=== PATIENT | female | born 1990 | race African-American/Black ===

== ENCOUNTER 2025-06-05 16:57 | Observation (INO) | payer BC, SELFPAY ==
[2025-06-05] VITALS (19 sets, daily range): BP systolic 117–127; BP diastolic 70–76; PULSE 78–102; O2SAT 93–99; BMI 25.6
--- NOTE | 2025-06-05 17:32 | OBADM ---
This patient, Joy Vu, admitted to the OB room 117 for observation. Patient/family oriented to hospital policies and general routines including ID bracelet, bed and alarms, visiting hours, pain management, procedures, bathroom and other care routines, personal items, smoking policy, room service/diet, and visiting hours. Patient/Family are encouraged to report perceived risks to care and to ask questions if they do not understand what they are told or what they should do.
[2025-06-05 19:11] LABS: Add Urine Microscopic? YES; Appearance Urine Clear (Clear); Glucose Urine UA Negative (Negative); Leukocyte Esterase Ur 2+ LEU/UL (Negative); Need Manual Microscopic Reviewed; Nitrate Urine Negative (Negative); Non Pathogenic Casts 0-2; Specific Grav Ur 1.016 (1.001-1.035)
--- NOTE | 2025-06-05 19:40 | PC.NURSE ---
Pt discharged home undelivered in stable condition per order from Dr. Croft. Discharge instructions given and discussed with pt. Pt stated understanding, all questions and concerns answered. Pt ambulated out of department with all belongings. Family @ pt side.
--- NOTE | 2025-06-21 11:22 | P.PNOB_ITS ---
OB - Triage/Final Diagnosis Visit Information Comments/Additional reasons for admission: I have assessed the risk for this patient, Joy Vu, and determined that she would benefit from observation care. Evaluation Laboratory results: Laboratory Tests 06/05/25 18:01 Urine Color Yellow Urine Appearance Clear Urine pH 6.0 Ur Specific Sebastian 1.016 Urine Protein Trace Urine Glucose (UA) Negative Urine Ketones 1+ H Ur Blood (Man) Negative Urine Nitrate Negative Urine Bilirubin Negative Urine Urobilinogen 1.0 Add Ur Microanalysis Reviewed Leukocyte Esterase Rfl 2+ H Urine RBC 0-2 Urine WBC 6-10 H Ur Squamous Epith Cells Moderate Urine Bacteria Rare Urine Casts 0-2 Final Diagnosis (1) Abdominal cramping affecting : Code(s): O26.899 - Other specified related conditions, unspecified trimester; R10.9 - Unspecified abdominal pain Status: Acute
== END 2025-06-05 19:40 | disposition home or self-care (01) ==
PROVIDERS: Admitting Provider Obstetrics & Gynecology; Visit Provider Obstetrics & Gynecology
DX: O26.892 Other specified pregnancy related conditions, second trimester (principal); R10.9 Unspecified abdominal pain; Z3A.28 28 weeks gestation of pregnancy
CPT/HCPCS: 81001; G0378; G0379